=== PATIENT | female | born 1980 | race Caucasian/White ===

== ENCOUNTER 2018-04-03 14:26 | Emergency (ER) | payer OTHER ==
[~2018-04-03] VITALS: Ht 152.4 cm; Wt 57.6 kg
[2018-04-03] MEDS ORDERED: TRIMETHOPRIM100 MG PO (14:41)
[2018-04-03] MEDS ORDERED: WELLBUTRIN XL300 MG PO (14:42)
[2018-04-03] MEDS ORDERED: ESTAZOLAM2 MG PO (14:43)
== END 2018-04-03 23:04 | disposition home or self-care (01) ==
LOC: ER 14:26
DX: N39.0 Urinary tract infection, site not specified (principal)

== ENCOUNTER 2018-04-28 17:21 | Emergency (ER) | payer OTHER ==
[~2018-04-28] VITALS: Ht 152.4 cm; Wt 56.7 kg
[~2018-04-28 17:21] MED LIST: ESTAZOLAM2 MG PO; TRIMETHOPRIM100 MG PO; WELLBUTRIN XL300 MG PO
== END 2018-04-28 20:09 | disposition home or self-care (01) ==
LOC: ER 17:21
DX: N39.0 Urinary tract infection, site not specified (principal); R30.0 Dysuria; R10.2 Pelvic and perineal pain; M54.5 Low back pain

== ENCOUNTER 2018-05-30 20:11 | Emergency (ER) | payer OTHER ==
[~2018-05-30] VITALS: Ht 152.4 cm; Wt 56.7 kg
[2018-05-31] MEDS ORDERED: LEVAQUIN500 MG PO (07:59)
[2018-05-31] MEDS ORDERED: KETO10TA2 PO (07:59)
== END 2018-05-31 09:09 | disposition home or self-care (01) ==
LOC: ER 20:11
DX: R10.2 Pelvic and perineal pain (principal)

== ENCOUNTER 2018-07-13 05:46 | Day surgery (SDC) | payer OTHER ==
[~2018-07-13 05:46] MED LIST changes: +KETO10TA2 PO; +LEVAQUIN500 MG PO; +MACRODANTIN100 M1 PO
[2018-07-13] MEDS ORDERED: ULTRACET PO (10:22)
[2018-07-13] MEDS ORDERED: NITROFURANTOIN50 MG PO (10:23)
[2018-07-13] MEDS ORDERED: DITROPAN5 MG PO (10:25)
== END 2018-07-13 15:40 | disposition home or self-care (01) ==
LOC: CIR.AMB 05:46
DX: N82.0 Vesicovaginal fistula (principal)

== ENCOUNTER 2020-06-05 11:08 | Emergency (ER) | payer OTHER ==
[~2020-06-05] VITALS: Ht 152.4 cm; Wt 63.5 kg
[~2020-06-05 11:08] MED LIST changes: +DITROPAN5 MG PO; +NITROFURANTOIN50 MG PO; +ULTRACET PO
[2020-06-05] MEDS ORDERED: KETO10TA2 PO (15:54)
== END 2020-06-05 16:04 | disposition home or self-care (01) ==
LOC: ER 11:08
DX: N39.0 Urinary tract infection, site not specified (principal)